=== PATIENT | female | born 1975 | race Two or more races ===

== ENCOUNTER 2022-04-24 11:15 | Inpatient (IN) | payer OTHER ==
[~2022-04-24] VITALS: Ht 167.6 cm; Wt 67.1 kg
[2022-04-24] MEDS ORDERED: PROTONIX20 MG PO (14:44)
[2022-04-24] MEDS ORDERED: INDERAL PO (14:45)
[2022-04-24] MEDS ORDERED: PEPCID AC20 MG PO (14:45)
[2022-04-26] MEDS ORDERED: BUPROPION XL150 MG (07:58)
[2022-04-26] MEDS ORDERED: METFORMIN HCL500 M4 (07:58)
[2022-04-26] MEDS ORDERED: OZEMPIC1 MG/0.71 (07:58)
[2022-04-26] MEDS ORDERED: PROPRANOLOL HCL60 MG (07:59)
== END 2022-04-27 11:31 | disposition home or self-care (01) | DRG 742 ==
LOC: O/R 04-25 07:04 → SURH 04-25 08:15 → OB/GYN 04-25 12:55
PROVIDERS: ADMIT Obstetrics & Gynecology Gynecologic Oncology; ATTEND Obstetrics & Gynecology Gynecologic Oncology
PROC: 0UT50ZZ Resection of Right Fallopian Tube, Open Approach (ICD-10-PCS; 2022-04-25)
PROC: 0UT00ZZ Resection of Right Ovary, Open Approach (ICD-10-PCS; 2022-04-25)
PROC: 0TN70ZZ Release Left Ureter, Open Approach (ICD-10-PCS; 2022-04-25)
PROC: 0TN60ZZ Release Right Ureter, Open Approach (ICD-10-PCS; 2022-04-25)
PROC: 0WUF07Z Supplement Abdominal Wall with Autologous Tissue Substitute, Open Approach (ICD-10-PCS; 2022-04-25)
PROC: 0DNN0ZZ Release Sigmoid Colon, Open Approach (ICD-10-PCS; 2022-04-25)
PROC: 0TNB0ZZ Release Bladder, Open Approach (ICD-10-PCS; 2022-04-25)
PROC: 0UNC0ZZ Release Cervix, Open Approach (ICD-10-PCS; 2022-04-25)
PROC: 0TJB8ZZ Inspection of Bladder, Via Natural or Artificial Opening Endoscopic (ICD-10-PCS; 2022-04-25)
PROC: 0UT90ZZ Resection of Uterus, Open Approach (ICD-10-PCS; principal; 2022-04-25 08:15)
PROC: 30233N1 Transfusion of Nonautologous Red Blood Cells into Peripheral Vein, Percutaneous Approach (ICD-10-PCS; 2022-04-26)
DX: D25.1 Intramural leiomyoma of uterus (principal); D62 Acute posthemorrhagic anemia; D25.2 Subserosal leiomyoma of uterus; N72 Inflammatory disease of cervix uteri; N83.01 Follicular cyst of right ovary; Z20.822 Contact with and (suspected) exposure to COVID-19; N73.6 Female pelvic peritoneal adhesions (postinfective)